=== PATIENT | male | born 1975 | race African-American/Black ===

== ENCOUNTER 2019-01-16 17:01 | Emergency (ER) | payer SELFPAY | END 2019-01-16 18:30 | disposition left against medical advice (07) | LOC: ER 17:01 | DX: R42 Dizziness and giddiness (principal); Z53.21 Procedure and treatment not carried out due to patient leaving prior to being seen by health care provider ==

== ENCOUNTER 2019-02-14 23:46 | Emergency (ER) | payer SELFPAY ==
[~2019-02-14] VITALS: Ht 172.7 cm; Wt 72.6 kg
[2019-02-14 23:50] VITALS: BP 120/60
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
== END 2019-02-15 | disposition left against medical advice (07) ==
LOC: ER 23:46
DX: R51 Headache (principal); F32.9 Major depressive disorder, single episode, unspecified; G89.11 Acute pain due to trauma; Y08.89XA Assault by other specified means, initial encounter; Y93.89 Activity, other specified; Y92.89 Other specified places as the place of occurrence of the external cause; Y99.8 Other external cause status
CPT/HCPCS: 99283

== ENCOUNTER 2019-02-15 09:00 | Emergency (ER) | payer SELFPAY ==
[~2019-02-15] VITALS: Ht 170.2 cm; Wt 77.1 kg
[2019-02-15 09:13] VITALS: BP 113/60
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
[2019-02-15] MEDS ORDERED: IBUPROFEN 400 MG TABLET. PO ONE (09:45)
== END 2019-02-15 09:56 | disposition home or self-care (01) ==
LOC: ER 09:00
DX: R51 Headache (principal); Y00.XXXA Assault by blunt object, initial encounter; Y93.89 Activity, other specified; Y92.89 Other specified places as the place of occurrence of the external cause; Y99.8 Other external cause status
CPT/HCPCS: 99281; 99282

== ENCOUNTER 2019-05-10 21:57 | Emergency (ER) | payer SELFPAY ==
[~2019-05-10 21:57] MED LIST: DOXY100C2 PO
[2019-05-10 22:39] VITALS: BP 136/63
--- NOTE | 2019-05-10 22:39 | PHYS DOC ---
Past Medical History Past Medical History: No Pertinent History, Unknown Past Surgical History: Other Additional Past Surgical Histo: 'ARTERY TAKEN FROM MY ARM TO MY LEG', LEFT HAND SURGERY Alcohol Use: Occasionally Drug Use: Marijuana Adult General Chief Complaint Chief Complaint: HAND PROBLEM [facility] HPI Patient is a 43 year old AA male who presents to the emergency department via EMS today with complaints of left hand pain. Patient states he is having left hand pain for several weeks he has been treated for an abscess in his left hand. He has been taking 10 mg oxycodone but is out of the medication. He denies any fever, redness or warmth of the affected extremity. He denies reports brown drainage from the site earlier today but denies any current drainage. He currently rates his pain a 10 out of 10 on the pain scale, he denies any alleviating factors. All other ROS is neg unless otherwise noted in HPI. Review of Systems Review of Systems See Above Allergies Allergies Allergies Coded Allergies Type Severity Reaction Last Updated Verified No Known Drug Allergies 02/15/19 No Physical Exam Physical Exam See Above Constitutional: Well developed, well nourished, no acute distress, non-toxic appearance. [] HENT: Normocephalic, atraumatic, bilateral external ears normal, nose normal. [] Eyes: PERRLA, EOMI, conjunctiva normal, no discharge. [] Neck: Normal range of motion, no stridor. [] Cardiovascular:Heart rate regular rhythm, no murmur [] Lungs & Thorax: Respirations even and unlabored, no retractions, no respiratory distress Skin: Warm, dry, no rash; healing wound to left posterior surface of hand, without erythema, warmth, or drainage. [] Extremities: No cyanosis, ROM intact, no edema. [] Neurologic: Alert and oriented X 3, no focal deficits noted. [] Psychologic: Affect normal, judgement normal, mood normal. [] EKG EKG [] Radiology/Procedures Radiology/Procedures [] Course & Med Decision Making Course & Med Decision Making Pertinent Labs and Imaging studies reviewed. (See chart for details) dx: medical screening exam A medical screening exam was performed, patient was found to have no emergent medical condition. The plan of care would've included oral medication for pain control. However, the patient eloped after talking with registration. [] [] Dragon Disclaimer Dragon Disclaimer This electronic medical record was generated, in whole or in part, using a voice recognition dictation system. Departure Departure Impression: Primary Impression: Encounter for medical screening examination Disposition: HOME, SELF-CARE (pt left after speaking with registration) Condition: STABLE Referrals: NO PCP (PCP) KENYON MUÑIZ APRN May 10, 2019 22:39
== END 2019-05-10 22:35 | disposition home or self-care (01) ==
LOC: ER 21:57
DX: M79.642 Pain in left hand (principal); F12.90 Cannabis use, unspecified, uncomplicated; Z98.890 Other specified postprocedural states
CPT/HCPCS: 99283

== ENCOUNTER 2019-05-11 17:51 | Emergency (ER) | payer SELFPAY ==
[2019-05-11 18:50] VITALS: BP 149/62
--- NOTE | 2019-05-11 19:00 | PHYS DOC ---
Past Medical History Past Medical History: No Pertinent History, Unknown Past Surgical History: Other Additional Past Surgical Histo: 'ARTERY TAKEN FROM MY ARM TO MY LEG', LEFT HAND SURGERY Alcohol Use: Occasionally Drug Use: Marijuana Adult General Chief Complaint Chief Complaint: UPPER EXTREMITY PAIN HPI HPI Patient is a 43 year old male who presents with right hand pain has been ongoing for over a month. I saw this patient about a month ago and hand has improved since that time. The patient is a known narcotic abuser and is complaining of severe pain. He is currently on an unknown antibiotic. Denies Fever. Complete ROS were reviewed and found to be within normal limits, except as documented in the [facility] Allergies Allergies Allergies Coded Allergies Type Severity Reaction Last Updated Verified No Known Drug Allergies 02/15/19 No Physical Exam Physical Exam Constitutional: Well developed, well nourished, no acute distress, non-toxic appearance. [] HENT: Normocephalic, atraumatic, bilateral external ears normal, oropharynx moist, no oral exudates, nose normal. [] Eyes: PERRLA, EOMI, conjunctiva normal, no discharge. [] Extremities: Tenderness to R hand, healing abscess to top of hand. Neurologic: Alert and oriented X 3, normal motor function, normal sensory function, no focal deficits noted. [] Psychologic: Affect normal, judgement normal, mood normal. [] EKG EKG [] Radiology/Procedures Radiology/Procedures [] Course & Med Decision Making Course & Med Decision Making Pertinent Labs and Imaging studies reviewed. (See chart for details) The patient hand abscess is improving. I discussed with patient that as we have discussed in the past due to his history of narcotic dependence and his history of hospital shopping. I will not prescribe him narcotics. A medical screening exam was performed on this patient and the patient does not appear to be having a medical emergency. His symptoms are not of sufficient severity and within reasonable medical probability it is unlikely the absence of immediate medical attention would result in placing the health of the individual (or, with respect to a woman, the health of the woman or her unborn child) in serious jeopardy, serious impairment to bodily functions, or serious dysfunction of any bodily organ or part. If , the patient is not in labor Dragon Disclaimer Dragon Disclaimer This electronic medical record was generated, in whole or in part, using a voice recognition dictation system. Departure Departure Impression: Primary Impression: Encounter for medical screening examination Disposition: HOME, SELF-CARE Condition: STABLE Referrals: NO PCP (PCP) Additional Instructions: Thank you for visiting [facility]. We appreciate you trusting us with your care. If any additional problems come up don't hesitate to return to visit us. Please follow up with your primary care provider so they can plan additional care if needed and know about the problem that you had. If symptoms worsen come back to the Emergency Department. Any concerning symptoms that start such as chest pain, shortness of air, weakness or numbness on one side of the body, running high fevers or any other concerning symptoms return to the ER. VAN DILLON APRN May 11, 2019 19:00
== END 2019-05-11 19:00 | disposition home or self-care (01) ==
LOC: ER 17:51
DX: M79.641 Pain in right hand (principal); L02.511 Cutaneous abscess of right hand; F12.90 Cannabis use, unspecified, uncomplicated; Z98.890 Other specified postprocedural states
CPT/HCPCS: 99281

== ENCOUNTER 2019-06-01 13:51 | Emergency (ER) | payer SELFPAY ==
[~2019-06-01] VITALS: Ht 170.2 cm; Wt 90.0 kg
--- NOTE | 2019-06-01 14:02 | PHYS DOC ---
Past Medical History Past Medical History: No Pertinent History, Unknown Past Surgical History: Other Additional Past Surgical Histo: 'ARTERY TAKEN FROM MY ARM TO MY LEG', LEFT HAND SURGERY Smoking Status: Current Every Day Smoker Alcohol Use: Occasionally Drug Use: Marijuana Adult General Chief Complaint Chief Complaint: HAND PROBLEM [facility] Patient is a 43 year old male who presents with left hand pain has been ongoing for over a month. I saw this patient about 1.5 month ago and hand has improved since that time. I also saw him 2 weeks ago. The patient is a known narcotic abuser and is complaining of severe pain. He is currently on an unknown antibiotic. Denies fever or any new symptoms. The patient was seen at [facility] prior to arrival. Complete ROS were reviewed and found to be within normal limits, except as documented in the [facility] Allergies Allergies Allergies Coded Allergies Type Severity Reaction Last Updated Verified No Known Drug Allergies 02/15/19 No Physical Exam Physical Exam Constitutional: Well developed, well nourished, no acute distress, non-toxic appearance. [] HENT: Normocephalic, atraumatic, bilateral external ears normal, oropharynx moist, no oral exudates, nose normal. [] Eyes: PERRLA, EOMI, conjunctiva normal, no discharge. [] Skin: Warm, dry, no erythema, no rash. [] Extremities: No tenderness, no cyanosis, no clubbing, ROM intact, no edema. Healing abscess to L hand that is markedly improved since last visit. Mild erythema and no discharge noted. Neurologic: Alert and oriented X 3, normal motor function, normal sensory function, no focal deficits noted. [] Psychologic: Affect normal, judgement normal, mood normal. [] EKG EKG [] Radiology/Procedures Radiology/Procedures [] Course & Med Decision Making Course & Med Decision Making Pertinent Labs and Imaging studies reviewed. (See chart for details) The patient has a healing abscess and has been seen at multiple facilities multiple times for this complaint. The patient has demanded narcotics every time he has been seen. He was seen at and called an ambulance after discharge. A medical screening exam was performed on this patient and the patient does not appear to be having a medical emergency. His symptoms are not of sufficient severity and within reasonable medical probability it is unlikely the absence of immediate medical attention would result in placing the health of the individual (or, with respect to a woman, the health of the woman or her unborn child) in serious jeopardy, serious impairment to bodily functions, or serious dysfunction of any bodily organ or part. If , the patient is not in labor Dragon Disclaimer Dragon Disclaimer This electronic medical record was generated, in whole or in part, using a voice recognition dictation system. Departure Departure Impression: Primary Impression: Encounter for medical screening examination Additional Impressions: Malingering Drug-seeking behavior Disposition: HOME, SELF-CARE Condition: STABLE Referrals: NO PCP (PCP) Patient Instructions: Medical Screening Exam Additional Instructions: Thank you for visiting [facility]. We appreciate you trusting us with your care. If any additional problems come up don't hesitate to return to visit us. Please follow up with your primary care provider so they can plan additional care if needed and know about the problem that you had. If symptoms worsen come back to the Emergency Department. Any concerning symptoms that start such as chest pain, shortness of air, weakness or numbness on one side of the body, running high fevers or any other concerning symptoms return to the ER. Problem Qualifiers VAN DILLON APRN Jun 01, 2019 14:02
[2019-06-01 14:21] VITALS: BP 138/95
== END 2019-06-01 14:31 | disposition home or self-care (01) ==
LOC: ER 13:51
DX: M79.642 Pain in left hand (principal); F12.90 Cannabis use, unspecified, uncomplicated; F17.200 Nicotine dependence, unspecified, uncomplicated; Z98.890 Other specified postprocedural states; Z76.5 Malingerer [conscious simulation]
CPT/HCPCS: 99281

== ENCOUNTER 2019-06-12 20:10 | Emergency (ER) | payer SELFPAY | END 2019-06-12 21:10 | disposition left against medical advice (07) | LOC: ER 20:10 | DX: M25.512 Pain in left shoulder (principal); Z53.21 Procedure and treatment not carried out due to patient leaving prior to being seen by health care provider ==

== ENCOUNTER 2019-07-31 03:15 | Emergency (ER) | payer SELFPAY ==
[~2019-07-31] VITALS: Ht 165.1 cm; Wt 72.7 kg
[2019-07-31 03:30] VITALS: BP 109/61
--- NOTE | 2019-07-31 03:51 | ED.ADGEN ---
Past Medical History Past Medical History: No Pertinent History, Unknown Past Surgical History: Other Additional Past Surgical Histo: 'ARTERY TAKEN FROM MY ARM TO MY LEG', LEFT HAND SURGERY Smoking Status: Current Every Day Smoker Alcohol Use: Occasionally Drug Use: Marijuana Adult General Chief Complaint Chief Complaint: CHEST PAIN-CARDIAC NATURE HPI HPI Patient is a 43 year old -[place] male with unknown medical history who presents with request for medical screening exam. Patient arrives by EMS. States he was seen earlier this evening at [facility] and was discharged without treatment. Patient states he had cough chest pain and that pain not performed. Patient's requesting shower, change of clothing, medial and taxi voucher to [facility]. Denies acute medical condition or complaint. Patient released from local [facility] the past few days it is currently homeless. He is otherwise uncooperative and is an unhelpful historian. [] Review of Systems Review of Systems ROS as per [facility] Allergies Allergies Allergies Coded Allergies Type Severity Reaction Last Updated Verified No Known Drug Allergies 02/15/19 No Physical Exam Physical Exam Constitutional: Well developed, well nourished, anxious, disheveled. [] HENT: Normocephalic, atraumatic, bilateral external ears normal, oropharynx moist, nose normal. [] Eyes: PERRLA, EOMI, conjunctiva normal. [] Neck: Normal range of motion, no tenderness. [] Cardiovascular:Heart rate regular rhythm, no murmur [] Lungs & Thorax: Bilateral breath sounds clear to auscultation .[] Abdomen: Bowel sounds normal, soft, no tenderness,. [] Skin: Warm, dry, no erythema. [] Back: No tenderness. [] Extremities: No tenderness, no edema. [] Neurologic: Alert and oriented X 3, normal motor function, normal sensory function, no focal deficits noted. [] Psychologic: No HI/SI EKG EKG [] Radiology/Procedures Radiology/Procedures [] Course & Med Decision Making Course & Med Decision Making Pertinent Labs and Imaging studies reviewed. (See chart for details) [Patient does not acute medical condition requiring emergent stabilization. His chief complaint is for criminal justice social worker which are not available or meeting with the patient's expectations. Patient provided no tray drink and discharged waiting area.] Dragon Disclaimer Dragon Disclaimer This electronic medical record was generated, in whole or in part, using a voice recognition dictation system. Departure Departure Impression: Primary Impression: Encounter for medical screening examination Disposition: HOME, SELF-CARE Condition: STABLE Referrals: NO PCP (PCP) Patient Instructions: Medical Screening Exam Additional Instructions: Please follow up with local PCP for re-evaluation. Take Tylenol as needed for pain. DAMIAN QUICK DO Jul 31, 2019 03:51
== END 2019-07-31 03:40 | disposition home or self-care (01) ==
LOC: ER 03:15
DX: R07.89 Other chest pain (principal); R05 Cough; F17.200 Nicotine dependence, unspecified, uncomplicated
CPT/HCPCS: 99283

== ENCOUNTER 2019-09-20 13:53 | Emergency (ER) | payer SELFPAY | END 2019-09-20 13:57 | disposition left against medical advice (07) | LOC: ER 13:53 | DX: R06.02 Shortness of breath (principal); Z53.21 Procedure and treatment not carried out due to patient leaving prior to being seen by health care provider ==

== ENCOUNTER 2019-09-20 14:22 | Emergency (ER) | payer SELFPAY ==
[~2019-09-20] VITALS: Ht 175.3 cm; Wt 90.9 kg
[2019-09-20 14:34] VITALS: BP 119/81
== END 2019-09-20 15:08 | disposition left against medical advice (07) ==
LOC: ER 14:22
DX: R45.851 Suicidal ideations (principal); Z53.21 Procedure and treatment not carried out due to patient leaving prior to being seen by health care provider